=== PATIENT | female | born 1945 | race African-American/Black ===

== ENCOUNTER → 2016-10-22 | Outpatient (CLI) | payer OTHER, MEDICAID ==
[2016-08-27 11:00] VITALS: BP 153/93
[~2016-10-22] MED LIST: AMLO10TA2 PO; BUDE10.22 IH; CARV6.252 PO; GABA-586 PO; LANS30CA PO; LEVO500T38 PO; METR500T PO; VALS320T2 PO
--- NOTE | 2016-10-22 11:09 | RAD ---
EXAM: Right knee, 3 views. HISTORY: Pain. COMPARISON: 02/22/2009. FINDINGS: Frontal, lateral and oblique views of the right knee are obtained. There is mild medial and moderate patellofemoral compartment joint space narrowing and moderate tricompartmental spurring. There is no fracture, dislocation or subluxation. There is trace joint fluid. IMPRESSION: Moderate patellofemoral compartment predominant tricompartmental osteoarthritis of the right knee.
== END | disposition home or self-care (01) ==
LOC: RAD 10:45
PROVIDERS: ATTEND Family Medicine
DX: M17.11 Unilateral primary osteoarthritis, right knee (principal)
CPT/HCPCS: 73562

== ENCOUNTER → 2016-10-27 | Day surgery (SDC) | payer OTHER, MEDICAID ==
[~2016-10-27] MED LIST changes: +ESTR1TAB15 PO; +GLYB2.5T2 PO; +IV RINGERS,LACTATED 1000ML 1,000 ML IV SCH; +PROPOFOL 40 ML IV ONE
--- NOTE | 2016-10-27 08:55 | PDOC1 ---
HISTORY & PHYSICAL H&P Mona Washington [id number] 1945 09/16/2016 03:00 PM 10/12 [place] OUR PATIENTS COME FIRST [address] [place], [place] [id number] Ph. [phone] Patient: Mona Washington Date of : 1945 Date: 09/16/2016 3:00 PM Visit Type: Consult This 71 year old female presents for Abdominal pain. History of Present Illness: 1. Abdominal pain Location is LUQ, RUQ, LLQ, RLQ. Additional information: Patient had been admitted to hospital due to abdominal pain. Was told that she had possible inflammation of the colon. Still had some elevation of wbc. No fever or tenderness. INTAKE COMMENTS: Intake Comments: Nurse Note: the pt is here today with complaints of abd pain, the pt had an abnormal CT scan completed recently. Pt states that her last colonoscopy was about 5 years ago. PROBLEM LIST: Problem Description Onset Date Diabetes mellitus without complication 12/24/2009 Closed head injury, initial encounter 02/13/2016 Benign essential hypertension 12/24/2009 Obesity 12/24/2009 Low back pain 12/24/2009 Gastroesophageal reflux disease 12/24/2009 Metabolic syndrome X 10/16/2010 Carpal tunnel syndrome 10/16/2010 Contusion of right ankle, initial encounter 02/13/2016 Asthma flare 08/08/2015 Acute bronchitis 09/11/2009 PAST MEDICAL/SURGICAL HISTORY (Detailed) Disease/disorder Onset Date Management Date Comments Hysterectomy Cholecystectomy Ruptured Ovary (L) Breast Reduction Breast biopsy 2003 Abnormal Mammogram Carpal Tunnel Carpal tunnel syndrome Chronic Back Pain Diabetes diabetes mellitus GERD Hypertension Obesity DIAGNOSTICS HISTORY: Test Ordered Interpretation Result completed COLONOSCOPY AND BIOPSY 08/28/2009 Abnormal Diverticulosis and no lesions 2008 Cardiolyte 10/12/2005 Normal 68% 10/12/2005 Sleep Study 11/12/2007 Normal 11/12/2007 Cardiolyte 02/09/2001 Normal 02/09/2001 Scan MRI 11/12/2007 Normal Head 11/12/2007 Stress Test 11/12/2007 Normal 11/12/2007 Scan MRI 08/12/2008 Normal Head 08/12/[address] 04/11/2002 Normal Head 04/11/2002 Scan MRI 11/19/2006 Abnormal L-S Spine----DJD Left Sided Disc Protrusion 2006 Test Ordered Ordering Comments Modifier COLONOSCOPY AND BIOPSY 08/28/2009 Cardiolyte 10/12/2005 Cardiac Studies Sleep Study 11/12/2007 Other Reports Cardiolyte 02/09/2001 Cardiac Studies Scan MRI 11/12/2007 Other Reports Stress Test 11/12/2007 Cardiac Studies Scan MRI 08/12/[address] 04/11/2002 Diagnostic Images Scan MRI 11/19/2006 Diagnostic Images Medications (Active): Started Medication Directions Instruction Stopped 06/25/2016 Amaryl 1 mg tablet take 1 tablet by oral route every day 04/13/2012 aspirin 81 mg Tab take 1 tablet (81MG) by oral route every day biotin Take (5000MCG) as directed 02/16/2013 Colcrys 0.6 mg tablet take 1 by Oral route 2 times every day start taking daily after acute attack of gout resolved 09/10/2016 Coreg CR 20 mg capsule, extended release TAKE [1] CAPSULE DAILY 09/10/2016 Diovan 320 mg tablet TAKE ONE TABLET BY MOUTH DAILY. 06/25/2016 estradiol 1 mg tablet TAKE ONE TABLET BY MOUTH DAILY. 08/08/2015 Flonase 50 mcg/actuation nasal spray,suspension (1) SPRAY IN EACH NOSTRIL DAILY. 01/28/2011 Lancets,Ultra Thin Use to test sugars 1 time daily 09/10/2016 Neurontin 300 mg capsule TAKE (1) CAPSULE BY MOUTH THREE TIMES DAILY. 08/12/2016 NORVASC 5 MG TABLET TAKE [1] TABLET BY MOUTH ONCE DAILY 03/09/2012 One Touch Ultra Test Strips Test sugars 1 time daily 09/10/2016 Prevacid 30 mg capsule,delayed release TAKE 1 CAPSULE ONCE DAILY 1 HOUR BEFORE A MEAL 03/02/2015 PROAIR HFA 90 MCG INHALER inhale 2 puff by Inhalation route every 4 - 6 hours as needed. 06/25/2016 Symbicort 80 mcg-4.5 mcg/actuation HFA aerosol inhaler inhale 2 puff by inhalation route 2 times every day in the morning and evening 08/29/2016 tramadol 50 mg tablet TAKE (1) TABLET BY MOUTH TWICE DAILY 09/27/2014 Zostavax (PF) 19,400 unit/0.65 mL subcutaneous suspension sub q Allergies: Ingredient Reaction Medication Name Comment CODEINE IODINATED CONTRAST MEDIA - IV DYE MAGGIE INHIBITORS Cough REVIEW OF SYSTEMS System Neg/Pos Details Constitutional Negative Chills, fever, malaise and weight loss. ENMT Negative Sore throat. Eyes Negative Double vision. Respiratory Negative Dyspnea and wheezing. Cardio Negative Chest pain and irregular heartbeat/palpitations. GI Positive See HPI. GI Negative See HPI. Negative Dysuria and hematuria. Endocrine Negative Cold intolerance and heat intolerance. Psych Negative Anxiety. Integumentary Negative Hives and rash. MS Negative Joint pain. Eric/Lymph Negative Easy bleeding and easy bruising. Allergic/Immuno Negative Animals at home and food allergies. VITAL SIGNS Time BP mm/Hg Pulse /min Resp /min Temp F Ht ft Ht in Ht cm Wt lb Wt kg BMI kg/ m2 BSA m2 O2 Sat% 3:31 PM 136/82 85 97.7 5.0 2.50 158.75 255.80 116.029 46.04 96 Time Measured by 3:31 PM Lashaun Shelton PHYSICAL EXAM: Exam Findings Details Constitutional Normal Well developed. Eyes Normal Conjunctiva - Right: Normal, Left: Normal. Sclera - Right: Normal, Left: Normal. Nasopharynx Normal Lips/teeth/gums - Normal. Neck Exam Normal Inspection - Normal. Thyroid gland - Normal. Respiratory Normal Inspection - Normal. Auscultation - Normal. Cardiovascular Normal Regular rate and rhythm. No murmurs, gallops, or rubs. Vascular Normal Pulses - Carotids: Normal, Femoral: Normal, Dorsalis pedis: Normal. Abdomen Normal Inspection - Normal. Anterior palpation - No guarding. No abdominal tenderness. No hepatic enlargement. No splenic enlargement. No hernia. No Ascites. Skin Normal Inspection - Normal. Extremity Normal No edema. Psychiatric Normal Oriented to time, place, person, and situation. Appropriate mood and effect. Assessment/Plan # Detail Type Description 1. Assessment Lower abdominal pain (R10.30). Patient Plan await colonoscopy result. 2. Assessment Colitis (K52.9). Patient Plan schedule colonoscopy at [facility] [place] Plan Orders Further diagnostic evaluations ordered today include(s) Colonoscopy to be performed today. She is to schedule a follow-up visit with Mike Amaya MD upon completion of work-up Electronically signed by: Mike Amaya MD 09/16/2016 03:56 PM Document generated by: Mike Amaya 09/16/2016 03:56 PM Bre Nolan MD, Family Practice; Andrea Montejo MD Internal Medicine; Anabel Carranza MD, Internal Medicine; Anson Amaya MD Internal Medicine; Mike Amaya MD, Gastroenterology; Rajat Goldstein MD, Rheumatology, S. George Santos, Physical Medicine/[place] Shawn Zepeda APRN ------ 10/27/2016 Patient seen and examined. No change in the history and physical. MIKE AMAYA MD Oct 27, 2016 08:55
--- NOTE | 2016-10-27 09:33 | PDOC4 ---
GI OP Report - Dr. Blum Date/Time DATE: 10/27/16 TIME: 09:31 Attending Physician Jordi Blum MD Referring Physician Indications Abdominal pain in the left upper quadrant, Follow-up of diverticulitis Pre-Op See the Anesthesia note for documentation of the administered medications Procedures Colonoscopy Findings Exam was quite difficult due to multiple diverticulosis and significant spasm. Procedure had to be terminated due to inability to advance the scope. I was unable to negotiate the sigmoid colon even with using pediatric colonoscope. - Diverticulosis in the sigmoid colon. - No specimens collected. Plan - Discharge patient to home. - Patient has a contact number available for emergencies. The signs and symptoms of potential delayed complications were discussed with the patient. Return to normal activities tomorrow. Written discharge instructions were provided to the patient. - Resume regular diet. - Continue present medications. - Perform a barium enema at appointment to be scheduled. - Repeat colonoscopy in 10 years for surveillance. - Return to my office after studies are complete. JORDI BLUM MD Oct 27, 2016 09:33
[2016-10-27 10:31] VITALS: BP 178/84
== END ==
LOC: ENDOS 08:32
PROVIDERS: ATTEND Internal Medicine Gastroenterology
DX: K57.30 Diverticulosis of large intestine without perforation or abscess without bleeding (principal); K57.32 Diverticulitis of large intestine without perforation or abscess without bleeding; K21.9 Gastro-esophageal reflux disease without esophagitis; E11.9 Type 2 diabetes mellitus without complications; I10 Essential (primary) hypertension; E66.9 Obesity, unspecified
CPT/HCPCS: 45378; J2704

== ENCOUNTER → 2016-11-03 | Outpatient (CLI) | payer OTHER, MEDICAID ==
[2016-10-27 10:31] VITALS: BP 178/84
[~2016-11-03] MED LIST changes: +BARIUM SULFATE 105% 1,900 ML SUSP PO ONE; -IV RINGERS,LACTATED 1000ML 1,000 ML IV SCH; -PROPOFOL 40 ML IV ONE
--- NOTE | 2016-11-03 10:58 | RAD ---
Barium enema, 11/03/2016: History: Incomplete colonoscopy The preliminary abdominal image demonstrates a nonspecific gas pattern. Surgical clips are present in the right upper quadrant. The colon was filled with barium in a retrograde manner with reflux into the appendix. Overhead and spot films were obtained. 1.9 minutes of fluoroscopy time was utilized. 10 fluoroscopic spot images were recorded. Multiple diverticula are identified in the sigmoid and descending colon. No paracolonic inflammatory process is seen. No constricting colonic lesion is evident. IMPRESSION: 1. Colonic diverticulosis. 2. Otherwise negative barium enema.
== END | disposition home or self-care (01) ==
LOC: RAD 08:33
PROVIDERS: ATTEND Internal Medicine Gastroenterology
DX: K57.30 Diverticulosis of large intestine without perforation or abscess without bleeding (principal)
CPT/HCPCS: 74270

== ENCOUNTER 2017-06-09 16:31 | Observation (INO) | payer MEDICAID, OTHER ==
[~2017-06-09] VITALS: Ht 157.5 cm; Wt 115.7 kg
[~2017-06-09 16:31] MED LIST changes: -BARIUM SULFATE 105% 1,900 ML SUSP PO ONE; -LEVO500T38 PO; +LEVO500T59 PO
[2017-06-09 17:24] LABS: BASO # 0.2 x10^3/uL (0.0-0.2); BASO % 1 % (0-3); EOS % 1 % (0-3); HEMATOCRIT 38.3 % (36.0-47.0); HEMOGLOBIN 12.7 g/dL (12.0-15.5); LYMPH # 4.4 x10^3/uL (1.0-4.8); LYMPH % 32 % (24-48); MEAN CORPUSCULAR HEMOGLOBIN 28 pg (25-35); MEAN CORPUSCULAR HGB CONC 33 g/dL (31-37); MEAN CORPUSCULAR VOLUME 83 fL (79-100); MONO % 6 % (0-9); NEUT % 59 % (31-73); PLATELET COUNT 397 x10^3/uL (140-400); RED BLOOD COUNT 4.61 x10^6/uL (3.50-5.40); RED CELL DISTRIBUTION WIDTH 14.6 % (11.5-14.5); WHITE BLOOD COUNT 13.6 x10^3/uL (4.0-11.0)
[2017-06-09 17:32] LABS: INR 1.1 (0.8-1.1); PROTHROMBIN TIME PATIENT 13.9 SEC (11.7-14.0)
[2017-06-09] MEDS ORDERED: ASPIRIN 325 MG TABLET PO ONE (17:45)
--- NOTE | 2017-06-09 17:51 | PHYS DOC ---
Past Medical History Past Medical History: Arthritis, Asthma, Diabetes-Type II, Hypertension Past Surgical History: Cholecystectomy, Hysterectomy, Other Additional Past Surgical Histo: OVARIAN SX.; cardiac cath; breast reduction Alcohol Use: None Drug Use: None Adult General Chief Complaint Chief Complaint: CHEST PAIN HPI HPI Patient is a 72 year old female who presents with chest pain and dizziness. Patient states that earlier today she started to have what she described as dizziness as feeling "off", she has a history of vertigo and felt like "it was coming on". This persisted and patient went to her doctor's office. In route, she developed pressure-like chest pain on the left side of her chest that radiated up into her neck and down her arm with pain in her arm, associated shortness of breath. The symptoms lasted approximately 30 minutes and slowly improved. She has had these symptoms before but cause is not found. She's had a heart catheter about 4 years ago at [facility] that was clean. 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 Her PCP is Dr. Woods. She has not yet taken her aspirin today. He denies cough, reports mild headache that is since resolved. She has chronic photophobia of the right eye secondary to cataract surgery. Review of Systems Review of Systems Constitutional: Denies fever or chills [] Eyes: Denies change in visual acuity, redness, or eye pain [] HENT: Denies nasal congestion or sore throat [] Respiratory: Denies cough or current shortness of breath [] Cardiovascular: per hpi GI: Denies abdominal pain, nausea, vomiting, bloody stools or diarrhea [] : Denies dysuria or hematuria [] Musculoskeletal: Denies back pain or joint pain [] Integument: Denies rash or skin lesions [] Neurologic: reports improving headache,denies focal weakness or sensory changes [] Current Medications Current Medications Current Medications Medications (Trade) Dose Ordered Sig/Sebastián Start Time Stop Time Status Last Admin Dose Admin Acetaminophen (Tylenol) 650 mg PRN Q4HRS PRN 06/09/17 18:30 06/10/17 18:29 06/09/17 20:55 650 MG Aspirin (Paul Aspirin) 325 mg 1X ONCE 06/09/17 17:45 06/09/17 17:46 DC 06/09/17 18:05 325 MG Nitroglycerin (Nitrostat) 0.4 mg PRN Q5MIN PRN 06/09/17 18:30 06/10/17 18:29 Allergies Allergies Allergies Coded Allergies Type Severity Reaction Last Updated Verified codeine Allergy Intermediate 10/27/16 Yes hydrocodone Allergy Intermediate 06/09/17 Yes MAGGIE Inhibitors Allergy Mild cough 06/09/17 Yes metformin Adverse Reaction Intermediate Diarrhea 10/27/16 Yes Physical Exam Physical Exam Constitutional: Well developed, well nourished, no acute distress, non-toxic appearance.wearing dark sunglasses HENT: Normocephalic, atraumatic, bilateral external ears normal, oropharynx moist, no oral exudates, nose normal. [] Eyes: PERRLA, EOMI, conjunctiva normal, no discharge. [] Neck: Normal range of motion, no tenderness, supple, no stridor. [] Cardiovascular:Heart rate regular with regular rhythm, no murmur [] Lungs & Thorax: Bilateral breath sounds clear to auscultation, no wheeze, moderate air movement Abdomen: Bowel sounds normal, soft, no tenderness, no masses, no pulsatile masses. [] Skin: Warm, dry, no erythema, no rash. [] Back: No tenderness, no CVA tenderness. [] Extremities: No tenderness, no cyanosis, no clubbing, ROM intact, no edema.neg homen's bilaterally Neurologic: Alert and oriented X 3, normal motor function, normal sensory function, no focal deficits noted. [] Psychologic: Affect normal, judgement normal, mood normal. [] Current Patient Data Vital Signs Vital Signs Date Time Temp Pulse Resp B/P (MAP) Pulse Ox O2 Delivery O2 Flow Rate FiO2 06/09/17 18:02 77 20 160/96 (117) 98 06/09/17 16:54 Room Air 06/09/17 16:38 98.1 98.1 Lab Values Laboratory Tests Test 06/09/17 17:15 06/09/17 17:40 White Blood Count 13.6 x10^3/uL (4.0-11.0) H Red Blood Count 4.61 x10^6/uL (3.50-5.40) Hemoglobin 12.7 g/dL (12.0-15.5) Hematocrit 38.3 % (36.0-47.0) Mean Corpuscular Volume 83 fL (79-100) Mean Corpuscular Hemoglobin 28 pg (25-35) Mean Corpuscular Hemoglobin Concent 33 g/dL (31-37) Red Cell Distribution Width 14.6 % (11.5-14.5) H Platelet Count 397 x10^3/uL (140-400) Neutrophils (%) (Auto) 59 % (31-73) Lymphocytes (%) (Auto) 32 % (24-48) Monocytes (%) (Auto) 6 % (0-9) Eosinophils (%) (Auto) 1 % (0-3) Basophils (%) (Auto) 1 % (0-3) Neutrophils # (Auto) 8.0 x10^3uL (1.8-7.7) H Lymphocytes # (Auto) 4.4 x10^3/uL (1.0-4.8) Monocytes # (Auto) 0.8 x10^3/uL (0.0-1.1) Eosinophils # (Auto) 0.2 x10^3/uL (0.0-0.7) Basophils # (Auto) 0.2 x10^3/uL (0.0-0.2) Prothrombin Time 13.9 SEC (11.7-14.0) Prothrombin Time INR 1.1 (0.8-1.1) Sodium Level 141 mmol/L (136-145) Potassium Level 3.4 mmol/L (3.5-5.1) L Chloride Level 101 mmol/L (98-107) Carbon Dioxide Level 35 mmol/L (21-32) H Anion Gap 5 (6-14) L Blood Urea Nitrogen 9 mg/dL (7-20) Creatinine 0.9 mg/dL (0.6-1.0) Estimated GFR (Cockcroft-Gault) 74.9 BUN/Creatinine Ratio 10 (6-20) Glucose Level 97 mg/dL (70-99) Calcium Level 9.1 mg/dL (8.5-10.1) Magnesium Level 2.0 mg/dL (1.8-2.4) Total Bilirubin 0.2 mg/dL (0.2-1.0) Aspartate Amino Transferase (AST) 35 U/L (15-37) Alanine Aminotransferase (ALT) 29 U/L (14-59) Alkaline Phosphatase 115 U/L (46-116) Troponin I Quantitative < 0.017 ng/mL (0.000-0.055) IG-Uyq-I-Type Natriuretic Peptide 29 pg/mL (0-124) Total Protein 8.3 g/dL (6.4-8.2) H Albumin 3.0 g/dL (3.4-5.0) L Albumin/Globulin Ratio 0.6 (1.0-1.7) L Laboratory Tests 06/09/17 17:15 Laboratory Tests 06/09/17 17:40 EKG EKG 78 bpm, sinus, normal axis, normal intervals, no ST elevation or depression, T waves nonischemic, interpreted by me.[] Radiology/Procedures Radiology/Procedures CXR: 1 view, no acute cardiac, pulmonary, or bony abnormality appreciated. Course & Med Decision Making Course & Med Decision Making Pertinent Labs and Imaging studies reviewed. (See chart for details) Pt no longer have chest pain, story consistent with unstable angina/possible ACS. pt given aspirin. No acute abnormalities on Ed workup, pt accepted to tele obs under Dr. Carranza, cards consulted [place] Disclaimer Dragon Disclaimer This electronic medical record was generated, in whole or in part, using a voice recognition dictation system. Departure Departure Impression: Primary Impression: Unstable angina Disposition: ADMITTED INPATIENT Admitting Physician: Anabel Carranza Referrals: MOIZ WOODS (PCP) SANJIV MCHUGH MD Jun 09, 2017 17:51
[2017-06-09 17:58] LABS: CALCIUM 9.1 mg/dL (8.5-10.1); CREATININE 0.9 mg/dL (0.6-1.0); GFR 74.9; POTASSIUM 3.4 mmol/L (3.5-5.1)
[2017-06-09 18:05] LABS: ALBUMIN/GLOBULIN RATIO 0.6 (1.0-1.7); TOTAL BILIRUBIN 0.2 mg/dL (0.2-1.0); TOTAL PROTEIN 8.3 g/dL (6.4-8.2)
[2017-06-09] MEDS ORDERED: ACETAMINOPHEN 325 MG TABLET. PO PRN (18:30)
[2017-06-09] MEDS ORDERED: NITROGLYCERIN SUBLINGUAL 0.4 MG BOTTLE OF 25. SL PRN (18:30)
[2017-06-09 20:45] VITALS: BP 154/81
[2017-06-09] MEDS ORDERED: AMLO5TAB2 PO (21:39)
[2017-06-09] MEDS ORDERED: TRAM50TA PO (21:39)
[2017-06-09] MEDS ORDERED: ASPI-630 PO (21:39)
[2017-06-09] MEDS ORDERED: DEXTROSE 50% 25 GM / 50ML DISP.SYRIN. IV PRN (22:00)
[2017-06-09] MEDS ORDERED: traMADol 50 MG TABLET PO PRN (22:00)
[2017-06-09] MEDS ORDERED: PANTOPRAZOLE 40 MG TABLET.DR. PO SCH (22:00)
[2017-06-09] MEDS ORDERED: hydrALAZINE 20 MG/ML VIAL. IVP PRN (22:00)
[2017-06-09] MEDS: GABAPENTIN 300 MG CAPSULE. PO SCH (22:22)
--- NOTE | 2017-06-09 22:45 | ACF ---
Admission Forms Criteria ANGINA Clinical Indications for Admission to Inpatient Care (Place 'X' for any and all applicable criteria): Admission is indicated for suspected angina (e.g, chest pain pattern, angina- equivalent symptom, or other finding suggesting unstable angina) with ANY ONE of the following(1)(2)(3)(4)(5): [X]I. Angina needing acute intervention as indicated by ALL of the following ( 11)(12): [X]a) Unstable angina is present as indicated by angina that is ANY ONE of the following: [X]i) New onset [ ]ii) Nocturnal [ ]iii) Prolonged at rest [ ]iv) Progressive [X]b) Angina warrants acute intervention as indicated by ANY ONE of the following: [ ]i) Recurrent angina (e.g, not responding as previously to treatment) [ ]ii) Angina at rest or with low-level activities despite initial medical therapy [ ]iii) New or presumably new ST-segment depression on ECG [ ]iv) Signs or symptoms of heart failure (eg, dyspnea, pulmonary edema) [ ]v) New or worsening mitral regurgitation [ ]vi) Hemodynamic instability [ ]vii) Dangerous arrhythmia (eg, sustained ventricular tachycardia) [ ]viii) History of percutaneous coronary intervention within 6 months [ ]ix) History of coronary artery bypass graft surgery [ ]x) HUMERA risk score of 2 or greater[A] [X]xi) History of Diabetes(14) [ ]xii) High-risk cardiac ischemia findings on noninvasive testing (e.g, echocardiogram, treadmill testing, nuclear scan) [ ]xiii) Chronic renal insufficiency (ie, estimated GFR less than 60 mL/min/1.732m) [ ]xiv) Left ventricular ejection fraction less than 40% [ ]II. Evidence of MO (e.g, cardiac biomarkers positive, ST-segment elevation on ECG). Also use Myocardial Infarction. Extended stay beyond goal length of stay may be needed for (1)(26): [ ]a) Intravascular procedural complications such as acute vessel closure, stent malposition, or vessel dissection(27) [ ]b) Extravascular procedural complications such as retroperitoneal hematoma, pericardial effusion, or cardiac tamponade [ ]c) Entry site complications causing bleeding, hematoma, or distal ischemia and requiring ongoing monitoring, surgical repair, or surgical thrombectomy(28) [ ]d) Heart failure [ ]e) Dangerous arrhythmia [ ]f) Hemodynamic instability with persisting symptoms after intensive medical management, or recurring severe prolonged symptoms [ ]g) Postprocedural myocardial infarction or acute renal failure The original [facility] content created by [facility] has been revised. The portions of the content which have been revised are identified through the use of italic text or in bold, and [facility] has neither reviewed nor approved the modified material. All other unmodified content is copyright [facility]. Please see references footnoted in the original [facility] edition 2016 Admission Criteria Met?: Yes ARIAN LUX Jun 09, 2017 22:45
[2017-06-09 22:50] VITALS: BP 140/68
[2017-06-10 03:25] VITALS: BP 153/83
--- NOTE | 2017-06-10 06:07 | EKG ---
[facility] [address] [place] [address] Test Date: 2017-06-09 Test Time: 16:39:34 Pat Name: ALVA DAMON Department: Room: 205 1 Gender: F International Marketing Executive: : 1945 Requested By: SANJIV MCHUGH Order Number: [id number] Reading MD: Jeremias Gama Measurements Intervals [place] Rate: 78 P: 40 NC: 174 QRS: -23 QRSD: 78 T: 18 QT: 372 QTc: 428 Interpretive Statements SINUS RHYTHM Electronically Signed On 06-11-2017 11:16:24 CDT by Jeremias Gama
[2017-06-10 06:53] LABS: BASO # 0.1 x10^3/uL (0.0-0.2); BASO % 1 % (0-3); EOS % 2 % (0-3); HEMATOCRIT 35.5 % (36.0-47.0); HEMOGLOBIN 11.7 g/dL (12.0-15.5); LYMPH # 4.1 x10^3/uL (1.0-4.8); LYMPH % 41 % (24-48); MEAN CORPUSCULAR HEMOGLOBIN 28 pg (25-35); MEAN CORPUSCULAR HGB CONC 33 g/dL (31-37); MEAN CORPUSCULAR VOLUME 84 fL (79-100); MONO % 7 % (0-9); NEUT % 50 % (31-73); PLATELET COUNT 335 x10^3/uL (140-400); RED BLOOD COUNT 4.22 x10^6/uL (3.50-5.40); RED CELL DISTRIBUTION WIDTH 14.7 % (11.5-14.5); WHITE BLOOD COUNT 10.2 x10^3/uL (4.0-11.0)
[2017-06-10 07:00] VITALS: BP 171/88
[2017-06-10 07:24] LABS: ALBUMIN 2.8 g/dL (3.4-5.0); ALBUMIN/GLOBULIN RATIO 0.6 (1.0-1.7); CALCIUM 9.1 mg/dL (8.5-10.1); CREATININE 0.8 mg/dL (0.6-1.0); GFR 85.8; MAGNESIUM 2.1 mg/dL (1.8-2.4); POTASSIUM 3.5 mmol/L (3.5-5.1); TOTAL BILIRUBIN 0.2 mg/dL (0.2-1.0); TOTAL PROTEIN 7.4 g/dL (6.4-8.2)
[2017-06-10 07:31] LABS: CHOLESTEROL/HDL RATIO 3.3
[2017-06-10] MEDS ORDERED: CARVEDILOL 6.25 MG TABLET. PO SCH (08:00)
[2017-06-10] MEDS: INSULIN ASPART 300 UNITS/3 ML INSULN.PEN SQ SCH ×2 (08:00→12:00)
[2017-06-10] MEDS ORDERED: glyBURIDE 1.25 MG TABLET PO SCH (08:00)
--- NOTE | 2017-06-10 08:15 | RAD ---
Exam performed: One view chest. Indication: Left-sided chest pain radiating to the left arm with dizziness and history of hypertension Date of Service: 06/09/2017 6:52 PM Comparison: 08/25/16. Single AP upright portable view chest findings: Cardiomediastinal silhouette is within limits of normal. No acute infiltrates, effusion or pneumothorax is detected. The bony structures are normal. Impression: No acute cardiopulmonary process is detected.
[2017-06-10] MEDS: GABAPENTIN 300 MG CAPSULE. PO SCH ×2 (08:44→14:00)
[2017-06-10] MEDS ORDERED: LOSARTAN POTASSIUM 50 MG TABLET. PO SCH (09:00)
[2017-06-10] MEDS ORDERED: ASPIRIN CHEWABLE 81 MG TABLET. PO SCH (09:00)
[2017-06-10] MEDS ORDERED: ESTRADIOL 1 MG TABLET. PO SCH (09:00)
[2017-06-10] MEDS ORDERED: amLODIPine BESYLATE 5 MG TABLET PO SCH (09:00)
--- NOTE | 2017-06-10 09:16 | PDOC2 ---
CARDIAC CONSULT DATE OF CONSULT Date of Consult DATE: 06/10/17 TIME: 09:02 REASON FOR CONSULT Reason for Consult: Chest pain REFERRING PHYSICIAN Referring Physician: Kriss SOURCE Source: Chart review, Patient HISTORY OF PRESENT ILLNESS HISTORY OF PRESENT ILLNESS This is a pleasant 72 yo female admitted for complains of chest pain and vertigo. Reports that she has been having intermittent left chest discomfort brief and more so to left shoulder then radiates to left arm. She could not tell me how long this has been going on but by her description it has been chronic. Yesterday she was having the same discomfort but more intense. She does have some numbness tingling to her left arm at times. No jaw pain. I did forward extension to her left arm and at 90 degrees her pain pain was duplicated as well as with palpation. She went to her PCP and she was noted with SBP in the 180s, she complained of chest discomfort at that time thus she was told to go to ED. Brayton a little nauseous yesterday and slightly SOA but no significant changes as far as her endurance with her regular activities. 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 She has been having vertigo episodes but no issues with facial droop, palpitations, unilateral weakness. No prior VTE, CAD and actually had LHC 4 yrs ago and was told that this was ok. PAST MEDICAL HISTORY Cardiovascular: HTN Pulmonary: Asthma, COPD CENTRAL NERVOUS SYSTEM: Vertigo GI: Diverticulosis, GERD, Peptic Ulcer disease (?) Hepatobiliary: Cholelithiasis, Other (BROTHRES) Musculoskeletal: Osteoarthritis, Other (obesity) Rheumatologic: No pertinent hx Infectious disease: No pertinent hx ENT: No pertinent hx Renal/: UTI Endocrine: Diabetes (2) Dermatology: No pertinent hx PAST SURGICAL HISTORY Past Surgical History: Cholecystectomy, Hysterectomy, Other (EGD, colonoscopy 7 yrs ago, LHC 4 yrs ago; breast reduction) FAMILY HISTORY Family History: Hypertension SOCIAL HISTORY Smoke: No ALCOHOL: none Drugs: None CURRENT MEDICATIONS CURRENT MEDICATIONS Current Medications Medications (Trade) Dose Ordered Sig/Sebastián Route PRN Reason Start Time Stop Time Status Last Admin Dose Admin Aspirin (Paul Aspirin) 325 mg 1X ONCE PO 06/09/17 17:45 06/09/17 17:46 DC 06/09/17 18:05 Acetaminophen (Tylenol) 650 mg PRN Q4HRS PRN PO FEVER 06/09/17 18:30 06/10/17 18:29 06/09/17 20:55 Amlodipine Besylate (Norvasc) 5 mg DAILY PO 06/10/17 09:00 06/10/17 08:44 Aspirin (Children'S Aspirin) 81 mg DAILY PO 06/10/17 09:00 06/10/17 08:42 Tramadol HCl (Ultram) 50 mg PRN Q6HRS PRN PO MILD TO MODERATE PAIN 06/09/17 22:00 06/09/17 22:23 Gabapentin (Neurontin) 600 mg TID PO 06/09/17 22:00 06/10/17 08:44 Losartan Potassium (Cozaar) 100 mg DAILY PO 06/10/17 09:00 06/10/17 08:43 ALLERGIES ALLERGIES: Coded Allergies: codeine (Verified Allergy, Intermediate, 10/27/16) hydrocodone (Verified Allergy, Intermediate, 06/09/17) MAGGIE Inhibitors (Verified Allergy, Mild, cough, 06/09/17) metformin (Verified Adverse Reaction, Intermediate, Diarrhea, 10/27/16) ROS Review of System 14 point ROS evaluated with pertinent positives noted per HPI PHYSICAL EXAM General: Alert, Oriented X3, Cooperative, No acute distress HEENT: Atraumatic, Mucous membr. moist/pink Lungs: Clear to auscultation, Normal air movement Heart: Regular rate (SR), Normal S1, Normal S2, Other (2/6 systolic murmur to LLS border) Abdomen: Soft, No tenderness, Other (obese) Extremities: No cyanosis, No edema Skin: No breakdown, No significant lesion Neuro: Normal speech, Sensation intact Psych/Mental Status: Mental status NL, Mood NL MUSCULOSKELETAL: Osteoarthritic changes both hands VITALS VITALS Vital Signs Date Time Temp Pulse Resp B/P (MAP) Pulse Ox O2 Delivery O2 Flow Rate FiO2 06/10/17 08:44 74 177/88 06/10/17 07:00 98.0 19 96 Nasal Cannula 98.0 LABS Lab: Laboratory Tests Test 06/09/17 17:15 06/09/17 17:40 06/10/17 05:25 06/10/17 07:30 White Blood Count 13.6 x10^3/uL (4.0-11.0) 10.2 x10^3/uL (4.0-11.0) Red Blood Count 4.61 x10^6/uL (3.50-5.40) 4.22 x10^6/uL (3.50-5.40) Hemoglobin 12.7 g/dL (12.0-15.5) 11.7 g/dL (12.0-15.5) Hematocrit 38.3 % (36.0-47.0) 35.5 % (36.0-47.0) Mean Corpuscular Volume 83 fL (79-100) 84 fL (79-100) Mean Corpuscular Hemoglobin 28 pg (25-35) 28 pg (25-35) Mean Corpuscular Hemoglobin Concent 33 g/dL (31-37) 33 g/dL (31-37) Red Cell Distribution Width 14.6 % (11.5-14.5) 14.7 % (11.5-14.5) Platelet Count 397 x10^3/uL (140-400) 335 x10^3/uL (140-400) Neutrophils (%) (Auto) 59 % (31-73) 50 % (31-73) Lymphocytes (%) (Auto) 32 % (24-48) 41 % (24-48) Monocytes (%) (Auto) 6 % (0-9) 7 % (0-9) Eosinophils (%) (Auto) 1 % (0-3) 2 % (0-3) Basophils (%) (Auto) 1 % (0-3) 1 % (0-3) Neutrophils # (Auto) 8.0 x10^3uL (1.8-7.7) 5.1 x10^3uL (1.8-7.7) Lymphocytes # (Auto) 4.4 x10^3/uL (1.0-4.8) 4.1 x10^3/uL (1.0-4.8) Monocytes # (Auto) 0.8 x10^3/uL (0.0-1.1) 0.7 x10^3/uL (0.0-1.1) Eosinophils # (Auto) 0.2 x10^3/uL (0.0-0.7) 0.2 x10^3/uL (0.0-0.7) Basophils # (Auto) 0.2 x10^3/uL (0.0-0.2) 0.1 x10^3/uL (0.0-0.2) Prothrombin Time 13.9 SEC (11.7-14.0) Prothromb Time International Ratio 1.1 (0.8-1.1) Sodium Level 141 mmol/L (136-145) 142 mmol/L (136-145) Potassium Level 3.4 mmol/L (3.5-5.1) 3.5 mmol/L (3.5-5.1) Chloride Level 101 mmol/L (98-107) 102 mmol/L (98-107) Carbon Dioxide Level 35 mmol/L (21-32) 30 mmol/L (21-32) Anion Gap 5 (6-14) 10 (6-14) Blood Urea Nitrogen 9 mg/dL (7-20) 9 mg/dL (7-20) Creatinine 0.9 mg/dL (0.6-1.0) 0.8 mg/dL (0.6-1.0) Estimated GFR (Cockcroft-Gault) 74.9 85.8 BUN/Creatinine Ratio 10 (6-20) 11 (6-20) Glucose Level 97 mg/dL (70-99) 100 mg/dL (70-99) Calcium Level 9.1 mg/dL (8.5-10.1) 9.1 mg/dL (8.5-10.1) Magnesium Level 2.0 mg/dL (1.8-2.4) 2.1 mg/dL (1.8-2.4) Total Bilirubin 0.2 mg/dL (0.2-1.0) 0.2 mg/dL (0.2-1.0) Aspartate Amino Transf (AST/SGOT) 35 U/L (15-37) 35 U/L (15-37) Alanine Aminotransferase (ALT/SGPT) 29 U/L (14-59) 28 U/L (14-59) Alkaline Phosphatase 115 U/L (46-116) 105 U/L (46-116) Troponin I Quantitative < 0.017 ng/mL (0.000-0.055) < 0.017 ng/mL (0.000-0.055) HK-Fji-V-Type Natriuretic Peptide 29 pg/mL (0-124) Total Protein 8.3 g/dL (6.4-8.2) 7.4 g/dL (6.4-8.2) Albumin 3.0 g/dL (3.4-5.0) 2.8 g/dL (3.4-5.0) Albumin/Globulin Ratio 0.6 (1.0-1.7) 0.6 (1.0-1.7) Triglycerides Level 73 mg/dL (0-150) Cholesterol Level 167 mg/dL (0-200) LDL Cholesterol, Calculated 101 mg/dL (0-100) VLDL Cholesterol, Calculated 15 mg/dL (0-40) Non-HDL Cholesterol Calculated 116 mg/dL (0-129) HDL Cholesterol 51 mg/dL (40-60) Cholesterol/HDL Ratio 3.3 Thyroid Stimulating Hormone (TSH) 3.017 uIU/mL (0.358-3.74) Glucose (Fingerstick) 104 mg/dL (70-99) ASSESSMENT/PLAN ASSESSMENT/PLAN 1. Atypical CP: Doubt ACS. Troponin series normal and EKG SR without acute changes. Reproducible discomfort suspect shoulder nerve impingement/OA 2. Hx of GERD/diverticulosis and possible past PUD 3. HTN: labile 4. COPD? 5. DM2: controlled BG. LDL 101 6. HRT 7. Likely BPPV Recommendations 1. TTE. Given her significant cardiac risk factors will proceed with MPI for further risk stratification 2. Continue home BP meds and uptitrate as warranted. Recommend low dose statin 3. Continue with ASA for primary prevention Problems: MIRIAM RODAS APRN Jun 10, 2017 09:16
--- NOTE | 2017-06-10 10:15 | PDOC ---
Provider Note Provider Note Pt seen.H&P dictated. #[id number] MEKHI LOPEZ MD Jun 10, 2017 10:15
[2017-06-10] MEDS ORDERED: ATOR10TA PO (10:19)
[2017-06-10] MEDS ORDERED: REGADENOSON 0.4 MG/5 ML DISP.SYRIN. IV ONE (10:45)
--- NOTE | 2017-06-10 11:04 | HP ---
ADMIT DATE: 06/09/2017 PATIENT LOCATION: 205. REASON FOR ADMISSION TO THE HOSPITAL: Chest pain, shoulder and the left chest. Risk factors including diabetes, hypertension and also dizziness. HISTORY OF PRESENT ILLNESS: The patient is a 72-year-old female, patient of Dr. Nolan, has a history of diabetes and hypertension. She was having pain from the left shoulder going to the front as well as back and she was brought to Dr. Nolan's office yesterday. EKG was done, but was admitted to the hospital because of chest pain. Cardiac enzymes and EKG were negative. Cardiology was consulted because of the risk factors and probably, we will go for a stress test. The patient had a cardiac catheterization 4 years ago and was told no major blockages. PAST MEDICAL HISTORY: History of diabetes, asthma, hypertension and arthritis. PAST SURGICAL HISTORY: Gallbladder surgery; hysterectomy; right shoulder surgery; cardiac catheterization 4 years ago, no major blockages; breast reduction and ovarian surgery. ALLERGIES: MAGGIE INHIBITORS, CODEINE, HYDROCODONE AND METFORMIN. MEDICATIONS AT HOME: The patient is on amlodipine 5 mg daily, aspirin 81 mg daily, Coreg 6.25 twice a day, estradiol 1 mg daily, gabapentin 600 mg 3 times a day, glyburide 2.5 mg daily, lansoprazole 30 mg daily, tramadol 50 mg q.6h. and Diovan 320 mg daily. PERSONAL HISTORY: Denies history of smoking, alcohol or drug abuse. FAMILY HISTORY: Positive for diabetes and heart disease. REVIEW OF SYMPTOMS: CARDIAC: Pain in the left shoulder, lightheaded and dizzy. GASTROINTESTINAL: No nausea or vomiting. NEUROLOGICAL: No weakness. The rest of 14 systems was reviewed and negative. PHYSICAL EXAMINATION: GENERAL: On examination, the patient is pleasant, not in any distress. VITAL SIGNS: At the time of admission, vitals were, temperature 98, pulse 77, respirations 18, blood pressure 211/95 and 97% on room air. HEENT: Head is atraumatic. Pupils equal. Oral cavity, no congestion. NECK: Supple. Thyroid not enlarged. JVD not elevated. CHEST: Symmetrical. CARDIOVASCULAR: S1, S2. LUNGS: Clear to auscultation. ABDOMEN: Soft. Bowel sounds present. The patient has tenderness in the left shoulder on external rotation. EXTERNAL GENITALIA: No Garcia. RECTAL: Deferred. EXTREMITIES: No calf tenderness. Pulses 1+. NEUROLOGIC: Cranial nerves intact. Moving all extremities. No focal deficits noted. LABORATORY DATA: Shows a white count of 13, came down to 10; hemoglobin 12.7 and platelets 397,000. Electrolytes show sodium 141, potassium 3.4, chloride 101, bicarbonate 35, BUN 9, creatinine 0.9 and glucose 97. Magnesium 2.5. LFTs were normal. Troponin was negative. Cholesterol 167, LDL 101, HDL 51. TSH 3.0. INR 1.1. Chest x-ray negative. EKG, no acute ischemic changes. FINAL IMPRESSION: 1. Chest pain, for further evaluation, risk factors including diabetes and hypertension. 2. Possible arthritis in the left shoulder. 3. Hypertension, accelerated. 4. Diabetes. 5. Morbid obesity. PLAN: At this time, admit to hospital. Seen by Cardiology. Cardiac enzymes and EKG. Probably will get a stress test and if it is okay, could be able to be discharged. Follow up with Dr. Nolan. MEKHI LOPEZ MD DR: AUGUSTUS/richard JOB#: [id number] / [id number]
--- NOTE | 2017-06-10 12:54 | RAD ---
APPROVED REPORT Test Type: Pharmacological Stress Nurse/Tech: Irene Marroquin R.N. Test Indications: Chest pain. Cardiac History: HTN, Coronary Angiography 2013 Medications: SEE EMR Medical History: SEE EMR Resting ECG: SR Resting Heart Rate: 72 bpm Resting Blood Pressure: 146/74mmHg Pretest Chest Pain: None Nurse/Tech Notes S1S2, lungs CTA, denied chest pain, SOA and dizziness. Consent: The procedure was explained to the patient in lay terms. Informed consent was witnessed. Manan eout was entered into [employer]. History and Stress Test performed by Irene Marroquin R.N. Pharm. Details Pharmacologic stress testing was performed using 0.4mg per 5ml of regadenoson given intravenously ove r 7-10 seconds. Stress Symptoms Slightly SOA, nausea, pain in R shoulder and L arm. POST EXERCISE Reason for Termination: Infusion complete Max HR: 108 bpm Max Blood Pressure: 151/82mmHg Blood Pressure response to exercise: Normal blood pressure response during stress. Heart Rate response to exercise: Normal Chest Pain: No. Arrhythmia: No. ST Change: No. INTERPRETATION Stress EKG Conclusion: Baseline EKG showed sinus rhythm. No ischemic changes at peak stress. No arr hythmias. Imaging Protocol IMAGE PROTOCOL: Stress Tc-99m/rest Tc-99m 2 days Rest: Stress: Viability: Radiopharm.Tc99m Sestamibi [id number] Duration 15min. Img Date 06/10/2017 Inj-Img [id number]. Stress Admin Site: IV - Left AntecubitalAdministrator: Serge Lewis, RT (R)(N) STRESS DATA End Diast. Vol.71.0mlAv. Heart Rate77.0bpm End Syst. Vol.21.0mlCO Index BSA0.0L/min Myocardial Xfux900.0gEject. Kjrfygmb80.0% Stress Rates Pk. Fill Rate2.86EDV/secLVtime Pk. Fill 215.05msec Pk. Empty Rate4.37ESV/secLVtime Pk. Glrpq497.46msec / Pk. Fill0.45EDV/sec Stress Scores Regional WT1.00Summed WT4.00 Regional WM0.00Summed WM4.00 LV Perfusion Stress scintigraphic images did not show any significant perfusion defects. Wall Motion Normal left ventricular systolic function with ejection fraction calculated at 70%. LV Perf. Quant 17 Seg. SSS0.00 Stress Defect Extent (% LAD)3.10Rest Defect Extent (% LAD)Rev. Defect Extent (% LAD)1.90 Stress Defect Extent (% LCX) 0.00Rest Defect Extent (% LCX)Rev. Defect Extent (% LCX)0.00 Stress Defect Extent (% RCA)0.00Rest Defect Extent (% RCA)Rev. Defect Extent (% RCA)0.00 Stress Defect Extent (% JH)2.00Rest Defect Extent (% JH)Rev. Defect Extent (% JH)0.70 Conclusion 1. Regadenoson cardioisotope stress test did not show any evidence of ischemia or infarct. 2. Normal left ventricular systolic function with ejection fraction calculated at 70%. 3. Low risk for cardiac events.
[2017-06-10 15:00] VITALS: BP 126/70
[2017-06-10] MEDS ORDERED: ATORVASTATIN CALCIUM 10 MG TABLET. PO SCH (21:00)
== END 2017-06-10 16:11 | disposition home or self-care (01) ==
LOC: ER 16:31 → 2 NORTH 18:30
PROVIDERS: ADMIT Internal Medicine; ATTEND Internal Medicine
DX: R07.89 Other chest pain (principal); E11.9 Type 2 diabetes mellitus without complications; I10 Essential (primary) hypertension; E66.01 Morbid (severe) obesity due to excess calories; M13.812 Other specified arthritis, left shoulder; J44.9 Chronic obstructive pulmonary disease, unspecified; K21.9 Gastro-esophageal reflux disease without esophagitis; Z87.11 Personal history of peptic ulcer disease; Z90.710 Acquired absence of both cervix and uterus; Z83.3 Family history of diabetes mellitus; Z82.49 Family history of ischemic heart disease and other diseases of the circulatory system
CPT/HCPCS: 36415; 71010; 78452; 80053; 80061; 82962; 83036; 83735; 83880; 84443; 84484; 85025; 85610; 93005; 93017; 99285; A9500; G0378; J1815; J2785; 96374; 96375; G0379

== ENCOUNTER → 2017-09-01 | Outpatient (CLI) | payer OTHER ==
[~2017-09-01] MED LIST changes: +AMLO5TAB2 PO; +ASPI-630 PO; +ATOR10TA PO; +TRAM50TA PO
--- NOTE | 2017-09-01 11:42 | RAD ---
DATE: 09/01/2017. EXAM: DIGITAL SCREEN BILAT W/CAD. HISTORY: Routine mammographic screening. COMPARISON: 08/20/2016. This study was interpreted with the benefit of Computerized Aided Detection (CAD). FINDINGS: The breast parenchyma shows scattered fibroglandular densities. Breast parenchyma level B.. There are no suspicious masses, microcalcifications or architectural distortion. Small nodules on the left are stable. Diffuse bilateral secretory calcifications and a coarse calcifications superolaterally on the right are benign. BI-RADS CATEGORY: 2 BENIGN FINDING(S). RECOMMENDED FOLLOW-UP: 12M 12 MONTH FOLLOW-UP. PQRS compliance statement: Patient information was entered into a reminder system with a target due date 09/01/2018 for the next mammogram. Mammography is a sensitive method for finding small breast cancers, but it does not detect them all and is not a substitute for careful clinical examination. A negative mammogram does not negate a clinically suspicious finding and should not result in delay in biopsying a clinically suspicious abnormality. "Our facility is accredited by the [employer] Mammography Program."
== END | disposition home or self-care (01) ==
LOC: MAMMO 10:48
PROVIDERS: ATTEND Family Medicine
DX: Z12.31 Encounter for screening mammogram for malignant neoplasm of breast (principal)
CPT/HCPCS: G0202; 77067

== ENCOUNTER 2018-01-22 10:26 | Emergency (ER) | payer OTHER ==
[2018-01-22] MEDS ORDERED: IV NORMAL SALINE 1000ML BAG 1,650 ML IV (10:37)
[2018-01-22] MEDS ORDERED: VANCOMYCIN PER PHARMACY MC (10:45)
[2018-01-22] MEDS ORDERED: IV NORMAL SALINE 500ML BAG 500 ML IV (10:45)
[2018-01-22] MEDS: IOHEXOL 300 MG/ML 100ML VIAL. IV (11:00)
[2018-01-22] MEDS: FAMOTIDINE 20 MG/2 ML VIAL IVP (11:04)
[2018-01-22] MEDS: IV NORMAL SALINE 1000ML BAG 1,000 ML IV ×2 (11:04→13:19)
[2018-01-22] MEDS: diphenhydrAMINE 50 MG/ML VIAL IVP (11:04)
[2018-01-22] MEDS: methylPREDNISolone SOD SUCC PF 125 MG/2 ML VIAL. IV (11:05)
[2018-01-22] MEDS: PIPERACILLIN/TAZOBACTAM 4.5 GM in IV NORMAL SALINE 100ML 100 ML IV (11:12)
[2018-01-22 11:13] LABS: ADD MAN DIFF? YES; BASO # 0.2 x10^3/uL (0.0-0.2); BASO % 1 % (0-3); EOS # 0.1 x10^3/uL (0.0-0.7); EOS % 0 % (0-3); HEMATOCRIT 36.4 % (36.0-47.0); HEMOGLOBIN 12.3 g/dL (12.0-15.5); LYMPH # 2.9 x10^3/uL (1.0-4.8); LYMPH % 17 % (24-48); MEAN CORPUSCULAR HEMOGLOBIN 29 pg (25-35); MEAN CORPUSCULAR HGB CONC 34 g/dL (31-37); MEAN CORPUSCULAR VOLUME 84 fL (79-100); MONO # 1.1 x10^3/uL (0.0-1.1); MONO % 6 % (0-9); NEUT # 12.8 x10^3uL (1.8-7.7); NEUT % 75 % (31-73); PLATELET COUNT 389 x10^3/uL (140-400); RED BLOOD COUNT 4.33 x10^6/uL (3.50-5.40)
[2018-01-22 11:22] LABS: INR 1.3 (0.8-1.1); PARTIAL THROMBOPLASTIN TIME 35 SEC (24-38); PROTHROMBIN TIME PATIENT 15.8 SEC (11.7-14.0)
[2018-01-22 11:23] LABS: ANION GAP 6 (6-14); BLOOD UREA NITROGEN 7 mg/dL (7-20); BUN/CREATININE RATIO 8 (6-20); CALCIUM 9.1 mg/dL (8.5-10.1); CARBON DIOXIDE 30 mmol/L (21-32); CHLORIDE 99 mmol/L (98-107); CREATININE 0.9 mg/dL (0.6-1.0); GFR 74.9; GLUCOSE 143 mg/dL (70-99); POTASSIUM 3.1 mmol/L (3.5-5.1); SODIUM 135 mmol/L (136-145)
[2018-01-22 11:29] LABS: ALBUMIN 2.8 g/dL (3.4-5.0); ALBUMIN/GLOBULIN RATIO 0.5 (1.0-1.7); ALK PHOS 130 U/L (46-116); ALT (SGPT) 23 U/L (14-59); AST (SGOT) 26 U/L (15-37); TOTAL BILIRUBIN 0.5 mg/dL (0.2-1.0); TOTAL PROTEIN 8.8 g/dL (6.4-8.2)
[2018-01-22 11:44] LABS: LACTIC ACID 0.9 mmol/L (0.4-2.0)
[2018-01-22 11:49] LABS: PROCALCITONIN < 0.10 ng/mL (0.00-0.10)
[2018-01-22] MEDS ORDERED: PIPERACILLIN/TAZOBACTAM 4.5 GM in IV NORMAL SALINE 100ML 100 ML IV (12:00)
[2018-01-22] MEDS: VANCOMYCIN 2 GM in IV 1/2 NORMAL SALINE 500 ML IV (12:16)
[2018-01-22 12:31] LABS: BILIRUBIN,URINE NEGATIVE (NEG); COLOR,URINE YELLOW; GLUCOSE,URINE NEGATIVE (NEG); NITRITE,URINE NEGATIVE (NEG); PH,URINE 7.5; PROTEIN,URINE NEGATIVE (NEG-TRACE); UROBILINOGEN,URINE 0.2 mg/dL (0.2 mg/dL)
[2018-01-22 12:35] LABS: CLARITY,URINE CLEAR
[2018-01-22 12:36] LABS: SQUAMOUS EPITHELIAL CELL,UR MANY /LPF
[2018-01-22 12:37] LABS: BACTERIA,URINE MOD /HPF (0-FEW)
[2018-01-22 13:03] LABS: YEAST,URINE PRESENT /HPF
[2018-01-22 13:04] LABS: % LYMPHS 20 % (24-48); % MONOS 5 % (0-10); % SEGS 75 % (35-66); PLT ESTIMATE ADEQUATE (ADEQUATE)
== END 2018-01-22 17:46 | disposition short-term general hospital (02) ==
LOC: ER 17:46
DX: K11.20 Sialoadenitis, unspecified (principal); M60.88 Other myositis, other site; L03.221 Cellulitis of neck; E11.9 Type 2 diabetes mellitus without complications; I10 Essential (primary) hypertension; J45.909 Unspecified asthma, uncomplicated; Z88.5 Allergy status to narcotic agent; Z88.8 Allergy status to other drugs, medicaments and biological substances
CPT/HCPCS: 36415; 70491; 80053; 81001; 83605; 84145; 85007; 85025; 85610; 85730; 87040; 96365; 96366; 96367; 96375; 99285-25; J1200; J2543; J2930; J3370; J7030; Q9967; S0028

== ENCOUNTER → 2018-09-09 | Outpatient (CLI) | payer OTHER ==
[2018-01-22 17:34] VITALS: BP 154/94
[~2018-09-09] MED LIST changes: -AMLO10TA2 PO; +AMLO10TA6 PO; -AMLO5TAB2 PO; +AMLO5TAB7 PO; +CARV6.2511 PO; -CARV6.252 PO
--- NOTE | 2018-09-10 10:25 | RAD ---
DATE: 09/09/2018 EXAM: MAMMO JONATHAN SCREENING BILATERAL HISTORY: Routine screening COMPARISON: 09/01/2017 This study was interpreted with the benefit of Computerized Aided Detection (CAD). Breast Density: SCATTERED The breast parenchyma shows scattered fibroglandular densities. Breast parenchyma level B. FINDINGS: 2-D and 3-D tomosynthesis imaging was performed in CC and MLO projections. Several small smooth nodules in the breasts appear unchanged. No spiculated mass or architectural distortion is evident. Extensive secretory type calcifications are present bilaterally. No suspicious microcalcifications have developed. IMPRESSION: Stable mammograms without evidence of malignancy. BI-RADS CATEGORY: 2 BENIGN FINDING(S) RECOMMENDED FOLLOW-UP: 12M 12 MONTH FOLLOW-UP PQRS compliance statement: Patient information was entered into a reminder system with a target due date for the next mammogram. Mammography is a sensitive method for finding small breast cancers, but it does not detect them all and is not a substitute for careful clinical examination. A negative mammogram does not negate a clinically suspicious finding and should not result in delay in biopsying a clinically suspicious abnormality. "Our facility is accredited by the [employer] Mammography [employer]."
== END | disposition home or self-care (01) ==
LOC: MAMMO 13:04
PROVIDERS: ATTEND Family Medicine
DX: Z12.31 Encounter for screening mammogram for malignant neoplasm of breast (principal)
CPT/HCPCS: 77063; 77067

== ENCOUNTER → 2019-02-22 | Outpatient (CLI) | payer OTHER ==
[2018-01-22 17:34] VITALS: BP 154/94
[~2019-02-22] MED LIST changes: -AMLO10TA6 PO; +AMLO10TA8 PO; +AMLO5TAB10 PO; -AMLO5TAB7 PO; -GABA-586 PO; +GABA300C18 PO
--- NOTE | 2019-02-22 16:24 | KCIC ---
Bone densitometry 02/22/2019 3:20 PM Indication: Postmenopausal screening exam. History of diabetes Comparison Study: None Discussion: Bone Densitometry was performed with dual photon absorption of the lumbar spine and proximal femurs. Lumbar Spine: Bone average density is 1.26g/cm2 for L1-L4. T-Score is 1.9. Left femoral neck: Bone average density is 1.065g/cm2. T-Score is 1.0. IMPRESSION: Normal bone mineral density Note: Definitions established by the World Health Organization: Normal: T-score is -1.0 or above. Osteopenia: T-score is between -1.0 and -2.5. Osteoporosis: T-score is -2.5 or below. Electronically signed by: Arnel Ramirez MD (02/22/2019 4:21 PM) [id number]
== END | disposition home or self-care (01) ==
LOC: KCIC DEXA 15:32
PROVIDERS: ATTEND Family Medicine
DX: Z78.0 Asymptomatic menopausal state (principal); E11.9 Type 2 diabetes mellitus without complications
CPT/HCPCS: 77080

== ENCOUNTER → 2019-09-06 | Outpatient (CLI) | payer OTHER ==
[2018-01-22 17:34] VITALS: BP 154/94
--- NOTE | 2019-09-06 17:31 | RAD ---
EXAM: AP, oblique and lateral views right knee DATE: 09/06/2019 12:00 AM INDICATION: Right knee pain COMPARISON: No Prior FINDINGS: Right knee joint osteoarthritis with moderate to severe medial compartment joint space narrowing and tricompartmental osteophytes. No significant knee joint effusion. No evidence of acute fracture or dislocation. IMPRESSION: 1. Right knee joint osteoarthritis. 2. No evidence of acute fracture or dislocation. Electronically signed by: Aren Masters MD (09/06/2019 5:28 PM) [id number]
--- NOTE | 2019-09-07 18:50 | RAD ---
3d digital tomography Bilateral History: Routine screening Technique: Bilateral 3d digital tomographic views were obtained and reviewed on a workstation. In addition, CAD - computer aided detection was utilized. Comparison: Most recently on 09/09/2018. Findings: Breast Tissue Density B : The breast tissue is composed of mixed fatty and fibroglandular tissue. Redemonstrated multifocal calcifications with benign morphology, mainly cecum were in origin. No newly seen suspicious microcalcifications. No mass or architectural distortion. Impression: No suspicious findings. No significant interval change. BI-RADS Category 2: Benign. Normal interval followup. The patient will receive a letter with the results in the mail. A mammogram does not have 100% sensitivity and therefore a negative imaging study should not delay further work up of a suspicious abnormality. "Our facility is accredited by the [employer] Mammography Program."
== END | disposition home or self-care (01) ==
LOC: MAMMO 13:38
PROVIDERS: ATTEND Family Medicine
DX: Z12.39 Encounter for other screening for malignant neoplasm of breast (principal); N64.89 Other specified disorders of breast; M17.11 Unilateral primary osteoarthritis, right knee; M25.761 Osteophyte, right knee
CPT/HCPCS: 73562; 77063; 77067

== ENCOUNTER → 2019-11-15 | Outpatient (CLI) | payer MEDICARE, OTHER ==
[2018-01-22 17:34] VITALS: BP 154/94
--- NOTE | 2019-11-15 18:12 | RAD ---
EXAM: Thyroid Ultrasound INDICATION: Nontoxic single thyroid nodule. ? TECHNIQUE: Real-time ultrasound of the thyroid was performed with permanent freeze-frame documentation. COMPARISON: None. ? FINDINGS: THYROID: Thyroid gland is heterogeneous in echogenicity. ? Right Lobe: 5.1 x 2.1 x 2.5 cm. ? Left Lobe: 4.3 x 1.6 x 1.8 cm. ? Isthmus: 0.4 cm. ?? Heterogeneity to the thyroid mimics the appearance of multiple thyroid nodules but 2 dominant nodules in the inferior right thyroid lobe are apparent. The larger measures 2.9 x 2.0 cm in the longitudinal plane, and is deeper with a hypoechoic rim. The slightly more superficial and smaller nodule measures 2.4 x 1.2 cm. These are best visualized on image 15 of 34. ? OTHER: No evidence of adjacent cervical adenopathy. ? IMPRESSION: ? Heterogeneous, multinodular thyroid with 2 dominant nodules identified in the inferior right lobe measuring 2.9 and 2.4 cm. These are amenable to ultrasound-guided fine-needle aspiration biopsy if clinically warranted. Electronically signed by: Lionel Desai MD (11/15/2019 6:09 PM) [facility]
== END | disposition home or self-care (01) ==
LOC: US 15:21
PROVIDERS: ATTEND Otolaryngology
DX: E04.2 Nontoxic multinodular goiter (principal)
CPT/HCPCS: 76536

== ENCOUNTER 2020-04-08 22:15 | Emergency (ER) | payer MEDICARE ==
[~2020-04-08] VITALS: Ht 157.5 cm; Wt 120.0 kg
[~2020-04-08 22:15] MED LIST changes: +ESTR-113 PO; -ESTR1TAB15 PO
[2020-04-08] MEDS ORDERED: methylPREDNISolone SOD SUCC PF 125 MG/2 ML VIAL. IM ONE (23:30)
[2020-04-08] MEDS ORDERED: MORPHINE SULFATE 2 MG/ML VIAL. IM ONE (23:30)
--- NOTE | 2020-04-08 23:32 | PHYS DOC ---
Past Medical History Past Medical History: Arthritis, Asthma, Diabetes-Type II, Hypertension Past Surgical History: Cholecystectomy, Hysterectomy, Other Additional Past Surgical Histo: OVARIAN SX.; cardiac cath; breast reduction; Smoking Status: Never Smoker Alcohol Use: None Drug Use: None General Adult EDM: Chief Complaint: UPPER EXTREMITY PAIN HPI: HPI: Patient is a 75-year-old female who presents with a chief complaint of left shoulder pain. Patient states pain started yesterday. She describes the pain as a squeezing stabbing labor-like pain. Patient starts in her left shoulder radiates to her elbow and up her left neck. Patient denies any injury. Patient states episodes last 1 to 2 hours. Patient states she has tried [id number] ibuprofen with some mild relief. On exam patient has full range of motion of her left upper extremity. Her sensation is intact. Pain is not reproducible to palpation or range of motion. Patient denies any chest pain or shortness of breath. Review of Systems: Review of Systems: Constitutional: Denies fever or chills. [] Eyes: Denies change in visual acuity. [] HENT: Denies nasal congestion or sore throat. [] Respiratory: Denies cough or shortness of breath. [] Cardiovascular: Denies chest pain or edema. [] GI: Denies abdominal pain, nausea, vomiting, bloody stools or diarrhea. [] : Denies dysuria. [] Musculoskeletal: Denies back pain or joint pain. [] Integument: Denies rash. [] Neurologic: Denies headache, focal weakness or sensory changes. [] Endocrine: Denies polyuria or polydipsia. [] Lymphatic: Denies swollen glands. [] Psychiatric: Denies depression or anxiety. [] Heart Score: Risk Factors: Risk Factors: DM, Current or recent (<one month) smoker, HTN, HLP, family history of CAD, obesity. Risk Scores: Score 0 - 3: 2.5% MACE over next 6 weeks - Discharge Home Score 4 - 6: 20.3% MACE over next 6 weeks - Admit for Clinical Observation Score 7 - 10: 72.7% MACE over next 6 weeks - Early Invasive Strategies Allergies: Allergies: Allergies Coded Allergies Type Severity Reaction Last Updated Verified codeine Allergy Intermediate 10/27/16 Yes hydrocodone Allergy Intermediate 06/09/17 Yes MAGGIE Inhibitors Allergy Mild cough 06/09/17 Yes metformin Adverse Reaction Intermediate Diarrhea 10/27/16 Yes Physical Exam: PE: Constitutional: Well developed, well nourished, no acute distress, non-toxic appearance. [] HENT: Normocephalic, atraumatic, bilateral external ears normal, oropharynx moist, no oral exudates, nose normal. [] Eyes: PERRLA, EOMI, conjunctiva normal, no discharge. [] Neck: Normal range of motion, no tenderness, supple, no stridor. [] Cardiovascular:Heart rate regular rhythm, no murmur [] Lungs & Thorax: Bilateral breath sounds clear to auscultation [] Abdomen: Bowel sounds normal, soft, no tenderness, no masses, no pulsatile masses. [] Skin: Warm, dry, no erythema, no rash. [] Back: No tenderness, no CVA tenderness. [] Extremities: No tenderness, no cyanosis, no clubbing, ROM intact, no edema. [full rom right shoulder] Neurologic: Alert and oriented X 3, normal motor function, normal sensory function, no focal deficits noted. [] Psychologic: Affect normal, judgement normal, mood normal. [] Current Patient Data: Vital Signs: Vital Signs Date Time Temp Pulse Resp B/P (MAP) Pulse Ox O2 Delivery O2 Flow Rate FiO2 04/08/20 23:02 98.3 78 16 156/90 (112) 97 Room Air 98.3 EKG: EKG: [] EKG 2222 normal sinus rhythm heart rate [address] elevation, no ST depression, no acute AR Radiology/Procedures: Radiology/Procedures: [] Course & Med Decision Making: Course & Med Decision Making Pertinent Labs and Imaging studies reviewed. (See chart for details) []Patient evaluated. Suspect radiculopathy. Treated with solumedrol and morphine Upon re-evaluation patient states pain improved but itch nose and injection site. Patient denies any airway issues. Treated with benadryl. Patient given Rx prednsione and ultram. Patient advised to take motrin. Patient appointment with PCP in the AM. Nola Disclaimer: Nola Disclaimer: This electronic medical record was generated, in whole or in part, using a voice recognition dictation system. Departure Departure Impression: Primary Impression: Left shoulder pain Disposition: 01 HOME, SELF-CARE Condition: STABLE Referrals: MOIZ WOODS (PCP) Patient Instructions: Shoulder Exercises, Generic, SportsMed, Shoulder Pain Scripts Prednisone (PREDNISONE) 50 Mg Tablet 1 TAB PO DAILY, #5 TAB Prov: KADE MORTON DO 04/09/20 Tramadol Hcl (ULTRAM) 50 Mg Tablet 1 TAB PO PRN Q8-12HRS PRN for pain MDD 2 Tablet(s), #20 TAB 0 Refills Prov: KADE MORTON DO 04/09/20 Justicifation of Admission Dx: Justifications for Admission: Justification of Admission Dx: N/A KADE MORTON DO Apr 08, 2020 23:32
[2020-04-09] MEDS ORDERED: TRAM-48 PO (00:52)
[2020-04-09] MEDS ORDERED: PRED50TA PO (00:52)
[2020-04-09 01:00] VITALS: BP 138/74
[2020-04-09] MEDS ORDERED: diphenhydrAMINE HCL 25 MG CAPSULE PO ONE (01:30)
--- NOTE | 2020-04-10 11:12 | EKG ---
[facility] [address] [place] [id number] Test Date: 2020-04-08 Test Time: 22:22:29 Pat Name: ALVA DAMON Department: Room: Gender: F Csr Technician: : [id number] Requested By: KADE MORTON Order Number: [id number] Reading MD: Jeremias Gama MD Measurements Intervals [place] Rate: 79 P: 46 [place]: 172 QRS: -23 QRSD: 76 T: 31 QT: 356 QTc: 414 Interpretive Statements SINUS RHYTHM Electronically Signed On 05-07-2020 9:24:31 CDT by Jeremias Gama MD
== END 2020-04-09 01:20 | disposition home or self-care (01) ==
LOC: ER 22:15
DX: M25.512 Pain in left shoulder (principal); M25.522 Pain in left elbow; M54.2 Cervicalgia; J45.909 Unspecified asthma, uncomplicated; E11.9 Type 2 diabetes mellitus without complications; I10 Essential (primary) hypertension; Z88.5 Allergy status to narcotic agent; Z88.8 Allergy status to other drugs, medicaments and biological substances
CPT/HCPCS: 93005; 96372; 99284; J2270; J2930

== ENCOUNTER → 2020-04-10 | Outpatient (CLI) | payer MEDICARE ==
[2020-04-09 01:00] VITALS: BP 138/74
[~2020-04-10] MED LIST changes: +PRED50TA PO; +TRAM-48 PO
--- NOTE | 2020-04-10 17:07 | RAD ---
Indications: Left shoulder pain extending down into the back. THREE-VIEW LEFT SHOULDER STUDY: No acute fracture or dislocation or lytic process is evident. There is moderate degenerative joint space narrowing and spurring of the left AC joint. 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 THREE-VIEW THORACIC SPINE SERIES: No compression fracture or discitis or lytic process is evident. There is diffuse idiopathic skeletal hyperostosis anteriorly. IMPRESSION: Diffuse idiopathic skeletal hyperostosis. No acute compression fracture. Electronically signed by: Tae Presley MD (04/10/2020 5:04 PM) [id number]
== END | disposition home or self-care (01) ==
LOC: RAD 10:26
PROVIDERS: ATTEND Family Medicine
DX: M19.012 Primary osteoarthritis, left shoulder (principal); M48.14 Ankylosing hyperostosis [Forestier], thoracic region
CPT/HCPCS: 72072; 73030

== ENCOUNTER → 2020-06-28 | Outpatient (CLI) | payer MEDICARE ==
--- NOTE | 2020-06-28 18:36 | RAD ---
EXAM: THYROID ULTRASOUND. HISTORY: Thyroid nodule. COMPARISON: 11/15/2019. FINDINGS: Sonographic evaluation of the thyroid gland was performed and evaluated using ACR TI-RADS criteria. Right lobe: The right lobe measures 5.6 x 2.7 x 2.2 cm. The parenchyma is heterogeneous and hypoechoic. Nodule #1. Maximum size: 2.9 cm; Other 2 dimensions 2.0 x 1.3 cm. Location: mid pole. Solid, mostly isoechoic. ACR TI-RADS risk category: TR4 (4-6 points): FNA if 1.5 cm, follow-up if 1-1.4 cm in 1, 2, 3, and 5 years. Significant change in size (>= 20% in two dimensions and minimal increase of 2 mm): No. Change in features: No. Nodule #2. Maximum size: 2.3 cm; Other 2 dimensions 1.3 x 1.2 cm. Location: lower pole. Solid, isoechoic, rim calcification. ACR TI-RADS risk category: TR5 (7 points): FNA if 1 cm, follow-up if 0.5-0.9 cm every year for 5 years. Significant change in size (>= 20% in two dimensions and minimal increase of 2 mm): No. Change in features: No. Left lobe: The left lobe measures 5.5 x 1.8 x 1.5 cm. The parenchyma is heterogeneous and hypoechoic. Nodule #1. Maximum size: 2.5 cm; Other 2 dimensions 1.5 x 1.4 cm. Location: mid pole. Solid, mostly hypoechoic. This may be only parenchymal heterogeneity. ACR TI-RADS risk category: TR4 (4-6 points): FNA if 1.5 cm, follow-up if 1-1.4 cm in 1, 2, 3, and 5 years. Significant change in size (>= 20% in two dimensions and minimal increase of 2 mm): No. Change in features: No. Isthmus: The isthmus measures 6 mm. Number of spongiform nodules of at least 2 cm not described (TR1): 0. Number of mixed cystic and solid nodules of at least 1.5 cm not described (TR 2): 0. IMPRESSION/RECOMMENDATION: 1. A rim calcified solid nodule on the right is TI-RADS 5. This could be further evaluated with ultrasound-guided fine needle aspiration if benignity is not already known. 2. Other nodules bilaterally most likely reflect changes of benign multinodular goiter and have increased in size slightly. Ongoing follow-up is recommended. Electronically signed by: Rancho Mcgregor MD (06/28/2020 6:33 PM) [facility]
== END | disposition home or self-care (01) ==
LOC: US 11:51
PROVIDERS: ATTEND Internal Medicine
DX: E04.2 Nontoxic multinodular goiter (principal)
CPT/HCPCS: 76536

== ENCOUNTER → 2020-09-11 | Outpatient (CLI) | payer MEDICARE ==
[~2020-09-11] MED LIST changes: +AMLO-186 PO; +AMLO-187 PO; -AMLO10TA8 PO; -AMLO5TAB10 PO
--- NOTE | 2020-09-12 15:06 | RAD ---
DATE: 09/11/2020 10:43 AM EXAM: MAMMO JONATHAN SCREENING BILATERAL HISTORY: Screening COMPARISON: 09/06/2019 Bilateral CC and MLO views of the breasts were performed. Bilateral breast tomosynthesis was performed in CC and MLO projections. This study was interpreted with the benefit of Computerized Aided Detection (CAD). FINDINGS: Breast Density: FATTY The Breast Parenchyma is primarily fatty replaced. Breast parenchyma level density A. No suspicious masses, microcalcifications or architectural distortion is present to suggest malignancy in either breast. The visualized axillae are unremarkable. IMPRESSION: No mammographic evidence of malignancy. BI-RADS CATEGORY: 1 NEGATIVE RECOMMENDED FOLLOW-UP: 12M 12 MONTH FOLLOW-UP Annual screening mammography is recommended, unless clinically indicated sooner based on symptoms or change in physical exam. PQRS compliance statement: Patient information was entered into a reminder system with a target due date for the next mammogram. Mammography is a sensitive method for finding small breast cancers, but it does not detect them all and is not a substitute for careful clinical examination. A negative mammogram does not negate a clinically suspicious finding and should not result in delay in biopsying a clinically suspicious abnormality. "Our facility is accredited by the [employer] Mammography Program."
== END ==
LOC: MAMMO 10:34
PROVIDERS: ATTEND Internal Medicine
DX: Z12.31 Encounter for screening mammogram for malignant neoplasm of breast (principal)
CPT/HCPCS: 77063; 77067

== ENCOUNTER → 2021-03-06 | Outpatient (CLI) | payer MEDICARE ==
--- NOTE | 2021-03-06 14:34 | RAD ---
EXAM: Bilateral knees, standing view. HISTORY: Pain. COMPARISON: None. FINDINGS: A frontal standing view both knees obtained. There is severe right and moderate left medial compartment joint space narrowing. There is moderate bilateral medial and lateral compartment spurri ng. There is enthesopathy superior to the patellae, including a possible fragmented enthesophyte on t he left. There is a corticated ossicle medial to the left medial femoral condyle likely due to the se quela prior medial collateral ligament injury. IMPRESSION: 1. Severe right and moderate left medial compartment predominant osteoarthritis. 2. No acute osseous finding. Electronically signed by: Leslie Akbar MD (03/06/2021 2:32 PM) [id number]
--- NOTE | 2021-03-06 14:37 | RAD ---
EXAM: Right hand and thumb, 4 views. HISTORY: Pain. COMPARISON: None. FINDINGS: A frontal view of the right hand and 3 views of the right thumb are obtained. There is nicolle re first interphalangeal joint spurring, including a chronic fragmented osteophyte along the dorsal a spect of the joint space. There is also mild first metacarpal phalangeal joint and first carpometacar pal joint spurring. There is a suspected small degenerative subchondral cyst in the third metacarpal head. No convincing osteochondral lesion or cortical collapse is seen in this location. IMPRESSION: 1. 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 2. Mild first carpal metacarpal joint and first metacarpal phalangeal joint osteoarthritis. Electronically signed by: Leslie Akbar MD (03/06/2021 2:34 PM) [id number]
== END ==
LOC: RAD 12:46
PROVIDERS: ATTEND Physical Medicine & Rehabilitation
DX: M17.0 Bilateral primary osteoarthritis of knee (principal); M19.011 Primary osteoarthritis, right shoulder; M77.8 Other enthesopathies, not elsewhere classified; M76.892 Other specified enthesopathies of left lower limb, excluding foot; M76.891 Other specified enthesopathies of right lower limb, excluding foot; M67.462 Ganglion, left knee; M67.461 Ganglion, right knee
CPT/HCPCS: 73140; 73565

== ENCOUNTER → 2021-08-30 | Outpatient (CLI) | payer MEDICARE ==
--- NOTE | 2021-08-30 11:31 | RAD ---
EXAM: Left foot, 2 views. HISTORY: Pain. COMPARISON: None. FINDINGS: 2 views of the left foot are obtained. There is no fracture, dislocation or subluxation. Th ere is a small plantar spur. There is mild enthesopathy at the Achilles tendon insertion. IMPRESSION: No acute osseous finding. Electronically signed by: Leslie Akbar MD (08/30/2021 11:28 AM) [id number]
== END ==
LOC: RAD 10:26
PROVIDERS: ATTEND Family Medicine
DX: M77.32 Calcaneal spur, left foot (principal); M76.62 Achilles tendinitis, left leg
CPT/HCPCS: 73620

== ENCOUNTER → 2021-09-12 | Outpatient (CLI) | payer MEDICARE ==
--- NOTE | 2021-09-12 15:43 | RAD ---
Bilateral digital screening 2-D and 3-D (digital breast tomosynthesis) mammogram: Reason for examination: Routine screening. Comparison: Mammograms from 09/11/2020 and 09/06/2019. Interpretation was made with the benefit of CAD. FINDINGS: Breast density: Category B. There are scattered areas of fibroglandular density. No suspicious breast mass, malignant appearing calcifications, or architectural distortion is seen. IMPRESSION: No evidence of malignancy. Assessment: BI-RADS 1. Negative. Recommendation: Routine screening mammograms. The patient will receive a letter with the results in the mail. Patient information will be entered i nto the mammography reminder system with a target recall date for the next mammogram. A reminder mansi er will be generated. Electronically signed by: Karuna Mcdonough MD (09/12/2021 3:40 PM) [id number]
== END ==
LOC: MAMMO 09:46
PROVIDERS: ATTEND Family Medicine
DX: Z12.31 Encounter for screening mammogram for malignant neoplasm of breast (principal)
CPT/HCPCS: 77063; 77067

== ENCOUNTER → 2022-01-28 | Outpatient (CLI) | payer MEDICARE ==
--- NOTE | 2022-01-28 14:24 | KCIC ---
Bone Densitometry History: Reason: POST MENOPAUSAL / Spl. Instructions: / History: Findings: Bone Densitometry was performed with dual photon absorption of the lumbar spine and proximal femurs. Lumbar Spine: Bone density is 1.195 g/cm2 for L1-L4. T-score is 1.3. Z-score is 3.0. Left hip: Bone density is 0.986 g/cm2. T-score is 0.4. Z-score is 1.0. IMPRESSION: Normal bone mineral density in the lumbar spine and left hip. World Health Organization definition of osteoporosis and osteopenia for women: normal equal s T score at or above -1.0 standard deviations; osteopenia equals T score between -1.0 and -2.5 stand pipe deviations; osteoporosis equals T score at or below -2.5 standard deviations. Electronically signed by: Breonna Espinoza MD (01/28/2022 2:21 PM) [id number]
== END ==
LOC: KCIC DEXA 09:38
PROVIDERS: ATTEND Internal Medicine
DX: Z78.0 Asymptomatic menopausal state (principal)
CPT/HCPCS: 77080